=== PATIENT | female | born 1995 | race Caucasian/White ===

== ENCOUNTER → 2018-04-21 | Outpatient (CLI) | payer MEDICAID | END | disposition home or self-care (01) | LOC: RAD 11:41 | DX: R76.11 Nonspecific reaction to tuberculin skin test without active tuberculosis (principal) | CPT/HCPCS: 71046 ==

== ENCOUNTER 2018-09-08 08:42 | Inpatient (IN) | payer MEDICAID ==
[2018-09-08] MEDS: LACTATED RINGER'S 1,000 ML IV* ×2 (10:26→17:05)
[2018-09-08] MEDS ORDERED: CARBOPROST 250 MCG INJ IM (10:30)
[2018-09-08] MEDS ORDERED: LIDOCAINE 1% (MPF) 30 ML INJ INJ (10:30)
[2018-09-08] MEDS ORDERED: MISOPROSTOL 200 MCG TAB PR (10:30)
[2018-09-08] MEDS ORDERED: METHYLERGONOVINE 0.2 MG INJ IM (10:30)
[2018-09-08] MEDS ORDERED: BUTORPHANOL 2 MG INJ IV (10:30)
[2018-09-08] MEDS ORDERED: IBUPROFEN 600 MG TAB PO (10:30)
[2018-09-08 11:07] LABS: ADD MAN DIFF? NO
[2018-09-08 11:08] LABS: BASOPHILS % 0.2 % (0.0-2.0); EOSINOPHILS # 0.1 10^3/ul (0.0-0.5); EOSINOPHILS % 0.9 % (0.0-7.0); HEMATOCRIT 32.3 % (37.0-47.0); HEMOGLOBIN 10.7 g/dl (12.0-16.0); LYMPHOCYTES # 1.6 10^3/ul (0.8-2.9); LYMPHOCYTES % 20.3 % (15.0-51.0); MEAN CORPUSCULAR HEMOGLOBIN 32.3 pg (29.0-33.0); MEAN CORPUSCULAR HGB CONC 33.1 g/dl (32.0-37.0); MEAN CORPUSCULAR VOLUME 97.6 fl (82.0-101.0); MEAN PLATELET VOLUME 12.7 fl (7.4-10.4); MONOCYTE # 0.7 10^3/ul (0.3-0.9); MONOCYTES % 8.6 % (0.0-11.0); NEUTROPHIL # 5.6 10^3/ul (1.6-7.5); NEUTROPHILS % 69.4 % (39.0-77.0); PLATELET COUNT 169 10^3/UL (140-415); RED BLOOD COUNT 3.31 10^6/ul (4.20-5.40); RED CELL DISTRIBUTION WIDTH 12.7 % (11.5-14.5)
[2018-09-08 11:13] LABS: PROTIME 12.2 Sec (11.9-14.9)
[2018-09-08 11:14] LABS: PARTIAL THROMBOPLASTIN TIME 24.3 Sec (23.0-35.0)
[2018-09-08] MEDS: DINOPROSTONE 10 MG VAG SUPP VAG (11:37)
[2018-09-08 12:51] LABS: ADD UMIC YES; UR ASCORBIC ACID NEGATIVE (NEGATIVE); UR BILIRUBIN (Dip) NEGATIVE (NEGATIVE); UR BLOOD (Dip) NEGATIVE (NEGATIVE); UR CLARITY CLEAR (CLEAR); UR COLOR STRAW (YELLOW); UR GLUCOSE (Dip) NEGATIVE (NEGATIVE); UR KETONES (Dip) NEGATIVE (NEGATIVE); UR LEUKOCYTE ESTERASE (Dip) TRACE Leu/ul (NEGATIVE); UR MUCUS FEW /HPF (NONE SEEN); UR NITRITE (Dip) NEGATIVE (NEGATIVE); UR RBC 0 /HPF (0-5); UR SPECIFIC GRAVITY (Dip) 1.009 (1.003-1.030); UR TOTAL PROTEIN (Dip) NEGATIVE (NEGATIVE); UR UROBILINOGEN (Dip) NEGATIVE (NEGATIVE); UR WBC 1 /HPF (0-5)
[2018-09-08 22:30] LABS: RAPID PLASMA REAGIN NONREACTIVE (NR)
[2018-09-09] MEDS ORDERED: MINERAL OIL LIGHT 10 ML VIAL TOP (01:30)
[2018-09-09] MEDS: LACTATED RINGER'S 1,000 ML IV* ×4 (01:54→22:11)
[2018-09-09] MEDS ORDERED: OXYTOCIN 30 UNITS/LR 500 ML IV ×2 (11:00→22:30)
[2018-09-09] MEDS: OXYTOCIN 30 UNITS/LR 500 ML IV ×2 (11:24→20:42)
[2018-09-09] MEDS ORDERED: NALOXONE (0.4 MG/ML) INJ IV (12:00)
[2018-09-09] MEDS ORDERED: EPHEDrine SULFATE 50 MG/5 ML SYG IV (12:00)
[2018-09-09] MEDS ORDERED: ONDANSETRON 4 MG INJ IV (12:00)
[2018-09-09] MEDS ORDERED: DIPHENHYDRAMINE 50 MG INJ IV (12:00)
[2018-09-09] MEDS: LACTATED RINGER'S 1,000 ML IV ×2 (12:30→12:40)
[2018-09-09] MEDS: FENTAnyl 2MCG/ML-ROPIV 0.2% 100 ML BAG EPI (15:30)
[2018-09-09] MEDS: MINERAL OIL LIGHT 10 ML VIAL TOP (20:43)
[2018-09-09] MEDS ORDERED: METHYLERGONOVINE 0.2 MG INJ IM (22:30)
[2018-09-09] MEDS ORDERED: MISOPROSTOL 200 MCG TAB PR (22:30)
[2018-09-09] MEDS ORDERED: ZOLPIDEM 5 MG TAB PO (22:30)
[2018-09-09] MEDS ORDERED: LANOLIN 7 GM TUBE TOP (22:30)
[2018-09-09] MEDS ORDERED: HYDROCODONE/APAP (5/325) TAB PO (22:30)
[2018-09-09] MEDS ORDERED: CARBOPROST 250 MCG INJ IM (22:30)
[2018-09-09] MEDS ORDERED: DIBUCAINE 1% 30 GM OINT TOP (22:30)
[2018-09-09] MEDS: CEPHALEXIN 500 MG CAP PO (23:32)
[2018-09-09] MEDS: IBUPROFEN 600 MG TAB PO (23:33)
[2018-09-10 03:38] LABS: HEPATITIS B SURFACE ANTIGEN NEGATIVE (NEGATIVE)
[2018-09-10] MEDS: IBUPROFEN 600 MG TAB PO ×3 (05:14→17:25)
[2018-09-10] MEDS: CEPHALEXIN 500 MG CAP PO ×3 (05:14→17:26)
[2018-09-10] MEDS: LACTATED RINGER'S 1,000 ML IV* ×2 (06:11→14:11)
[2018-09-10 07:52] LABS: ADD MAN DIFF? NO
[2018-09-10 08:09] LABS: BASOPHILS % 0.3 % (0.0-2.0); EOSINOPHILS # 0.1 10^3/ul (0.0-0.5); EOSINOPHILS % 0.5 % (0.0-7.0); HEMATOCRIT 31.6 % (37.0-47.0); HEMOGLOBIN 10.7 g/dl (12.0-16.0); LYMPHOCYTES % 18.7 % (15.0-51.0); MEAN CORPUSCULAR HEMOGLOBIN 32.5 pg (29.0-33.0); MEAN CORPUSCULAR HGB CONC 33.9 g/dl (32.0-37.0); MEAN PLATELET VOLUME 12.5 fl (7.4-10.4); MONOCYTE # 0.8 10^3/ul (0.3-0.9); MONOCYTES % 7.9 % (0.0-11.0); NEUTROPHIL # 7.6 10^3/ul (1.6-7.5); NEUTROPHILS % 72.2 % (39.0-77.0); PLATELET COUNT 165 10^3/UL (140-415); RED BLOOD COUNT 3.29 10^6/ul (4.20-5.40); RED CELL DISTRIBUTION WIDTH 12.5 % (11.5-14.5)
[2018-09-10 08:09] LABS: WHITE BLOOD COUNT 10.6 10^3/ul (4.8-10.8)
[2018-09-10] MEDS: LIDOCAINE 0.5% (SDV) 50 ML INJ INJ (08:09)
[2018-09-10] MEDS: MAGNESIUM HYDROXIDE 30ML CUP PO ×2 (09:12→20:36)
[2018-09-10] MEDS: SENNA/DOCUSATE NA (8.6MG/50MG) TAB PO ×2 (09:12→20:36)
[2018-09-10] MEDS: HYDROCODONE/APAP (5/325) TAB PO (20:35)
[2018-09-10] MEDS: BENZOCAINE 20% 56 ML SPRAY TOP (21:18)
[2018-09-10] MEDS: WITCH HAZEL/GLYCERIN PAD PR (21:18)
[2018-09-11] MEDS: IBUPROFEN 600 MG TAB PO ×3 (00:47→11:51)
[2018-09-11] MEDS: CEPHALEXIN 500 MG CAP PO ×3 (00:47→11:51)
[2018-09-11] MEDS: DIPHTH/TET/ACEL PERTUSS (ADULT) 0.5 ML VIAL IM* (09:00)
[2018-09-11] MEDS: MEASLES,MUMPS,RUBELLA VACCINE INJ SC* (09:00)
[2018-09-11] MEDS: VARICELLA VACCINE LIVE/PF 1,350 UNIT/0.5 ML ML SC* (09:00)
[2018-09-11] MEDS: MAGNESIUM HYDROXIDE 30ML CUP PO (09:09)
[2018-09-11] MEDS: SENNA/DOCUSATE NA (8.6MG/50MG) TAB PO (09:09)
== END 2018-09-11 15:20 | disposition home or self-care (01) | DRG 807 ==
LOC: PP1 09-09 22:08 → L-D 08:42
PROVIDERS: Obstetrics & Gynecology
PROC: 10E0XZZ Delivery of Products of Conception, External Approach (ICD-10-PCS; principal; 2018-09-09)
PROC: 0HQ9XZZ Repair Perineum Skin, External Approach (ICD-10-PCS; 2018-09-09)
PROC: 3E033VJ Introduction of Other Hormone into Peripheral Vein, Percutaneous Approach (ICD-10-PCS; 2018-09-09)
DX: O70.0 First degree perineal laceration during delivery (principal); Z37.0 Single live birth; Z3A.39 39 weeks gestation of pregnancy
CPT/HCPCS: 62319; 76815; 81001; 85025; 85610; 85730; 86592; 86850; 86900; 86901; 87086; 87340; 90715; 90716